=== PATIENT | female | born 1955 | race Caucasian/White ===

== ENCOUNTER → 2016-12-21 | Outpatient (REF) | payer OTHER ==
[~2016-12-21] MED LIST: /CELE20CA PO; FLEXERIL PO; HYDR25TA6 PO; KLOR10TA OR; LIDOCAINE HCL 2% TOP; LISI10TA4 PO; MECL25TA2 PO; PAXI10TA PO; PREV15CA PO; TOPI50TA PO; VALS40TA OR; boniva PO
== END ==
LOC: M SFHCPLAZ 15:37
DX: R35.0 Frequency of micturition (principal)

== ENCOUNTER → 2016-12-27 | Outpatient (CLI) | payer OTHER ==
--- NOTE | 2016-12-27 14:38 | REP ---
THYROID SONOGRAPHY: HISTORY: Thyroid nodule. Comparison study June 14, 2016. This was read as showing a solid-appearing nodule in the right lobe stable since 2005 and a new nodule in the left lobe measuring 0.8 cm. FINDINGS: Thyroid isthmus is 0.2 cm thick. Right lobe dimensions today are 5.3 x 1.7 x 1.4 cm. The left lobe measures 5.2 x 1.7 x 1.3 cm. There is a solid 0.9 x 0.7 x 0.6 cm nodule in the right mid thyroid gland unchanged. There is a complex nodule 0.9 x 0.7 x 0.5 cm in the left mid gland. This nodule is unchanged in size but has become more cystic. The calcification noted previously is no longer apparent. IMPRESSION: Stable size thyroid nodules bilaterally. The previously noted left-sided nodule has become more cystic in the interval since the most recent study of June 14, 2016. Signed by Heath Triana MD 12/27/2016 02:49 P
== END ==
LOC: M RAD 12:57
PROVIDERS: ATTEND Student in an Organized Health Care Education/Training Program
DX: E04.1 Nontoxic single thyroid nodule (principal)

== ENCOUNTER → 2017-02-08 | Outpatient (REF) | payer OTHER ==
[2017-02-11 00:06] LABS: Lyme Disease IgG/IgM Antibodie <0.91 ISR (0.00-0.90); Lyme Disease IgM Ab Quantitati <0.80 index (0.00-0.79); SJOGREN'S ANTI SS-A 3.6 AI (0.0-0.9); SJOGREN'S ANTI SS-B <0.2 AI (0.0-0.9)
== END ==
LOC: M LABNEURO 17:22
PROVIDERS: ATTEND Physician Assistant Medical
DX: M25.50 Pain in unspecified joint (principal)

== ENCOUNTER → 2017-02-28 | Outpatient (CLI) | payer OTHER ==
[~2017-02-28] MED LIST changes: +CALCTAB7 PO; +CRES40TA PO; +GABA-282 PO; +LIDO1OIN2 TOP; +LIDO1PAD TOP; +LOSA25TA8 PO; +MECL-86 PO; +MULT1TAB10 PO; +PREV30CA11 PO; +TOPA50TA7 PO; +TYLE650T35 PO; +VITA100037 PO
--- NOTE | 2017-02-28 14:47 | REPMRS ---
Patient History The patient states she had a clinical breast exam in Patient is postmenopausal and is nulliparous. Family history of colorectal cancer in mother. Digital Woman Screen Mammo: February 28, 2017 - Exam #: [id number] Bilateral CC and MLO view(s) were taken. Technologist: Yady Garcia, Technologist Prior study comparison: February 28, 2016, digital woman screen mammo performed at [facility]. February 25, 2015, digital bilateral screening mammo performed at [facility]. FINDINGS: The breast tissue is heterogeneously dense. This may lower the sensitivity of mammography. There has been no change in the appearance of the mammogram from the prior studies. There is a moderate amount of residual fibroglandular tissue which is fairly symmetric. There is no interval development of dominant mass, areas of architectural distortion, or clustered microcalcification typical of malignancy. ASSESSMENT: BI-RADS/ACR category 1 mammogram. Negative. Recommendation Routine screening mammogram in 1 year (for women over age 40). This mammogram was interpreted with the aid of an FDA-approved computer-aided dectection system. Electronically Signed By: Michael Morfin MD 02/28/17 2820
== END ==
LOC: M WHC 13:26
PROVIDERS: ATTEND Nurse Practitioner Family
DX: Z12.31 Encounter for screening mammogram for malignant neoplasm of breast (principal)

== ENCOUNTER → 2017-03-05 | Outpatient (CLI) | payer OTHER ==
[~2017-03-05] VITALS: Ht 157.5 cm; Wt 90.8 kg
[~2017-03-05] MED LIST changes: +LIDOCAINE 2% INJ 100 MG/5 ML SDV (FOR ANES.) As Ordered ONE; +NS 1,000 ML IV ONE; +PROPOFOL 500 MG/50 ML VIAL As Ordered ONE
--- NOTE | 2017-03-05 10:22 | ROOR ---
Patient Name: Grace Hernandez Procedure Date: 03/05/2017 10:08 AM Date of : 1955 Age: 62 Room: [facility] Gender: Female Note Status: Finalized Procedure: Upper GI endoscopy + Biopsies Indications: Heartburn Providers: Jame Moreno MD Referring MD: Sadi Champagne DO Requesting Provider: Medicines: Monitored Anesthesia Care Complications: No immediate complications. Procedure: Pre-Anesthesia Assessment: - The heart rate, respiratory rate, oxygen saturations, blood pressure, adequacy of pulmonary ventilation, and response to care were monitored throughout the procedure. The Endoscope was introduced through the mouth, and advanced to the second part of duodenum. The upper GI endoscopy was accomplished without difficulty. The patient tolerated the procedure well. Findings: The Z-line was irregular and was found 35 cm from the incisors. Multiple biopsies were obtained with cold forceps for evaluation to rule out Hernandez's Esophagus randomly at the gastroesophageal junction. A medium-sized hiatal hernia was present. No other significant abnormalities were identified in a careful examination of the stomach. The exam of the duodenum was otherwise normal. Impression: - Z-line irregular, 35 cm from the incisors. - Medium-sized hiatal hernia. - Multiple biopsies were obtained at the gastroesophageal junction. - The examination was otherwise normal. Recommendation: - Patient has a contact number available for emergencies. The signs and symptoms of potential delayed complications were discussed with the patient. Return to normal activities tomorrow. Written discharge instructions were provided to the patient. - High fiber diet. - Discharge patient to home. - Continue present medications. - Await pathology results. - Telephone GI clinic for pathology results in 1 week. - Check Portal Online for Path Results.([email or web address]) - Return to referring physician. - The findings and recommendations were discussed with the patient's family. Jame Moreno MD Jame Moreno MD 03/05/2017 10:22:26 AM This report has been signed electronically. Number of Addenda: 0 Note Initiated On: 03/05/2017 10:08 AM Estimated Blood Loss: Estimated blood loss: none.
--- NOTE | 2017-03-05 10:39 | ROOR ---
Patient Name: Grace Hernandez Procedure Date: 03/05/2017 10:09 AM Date of : 1955 Age: 62 Room: [facility] Gender: Female Note Status: Finalized Procedure: Colonoscopy to Cecum Indications: Colon cancer screening in patient at increased risk: Colorectal cancer in mother Providers: Jame Moreno MD Referring MD: Sadi Champagne DO Requesting Provider: Medicines: Monitored Anesthesia Care Complications: No immediate complications. Procedure: Pre-Anesthesia Assessment: - The heart rate, respiratory rate, oxygen saturations, blood pressure, adequacy of pulmonary ventilation, and response to care were monitored throughout the procedure. The Colonoscope was introduced through the anus and advanced to the cecum, identified by appendiceal orifice and ileocecal valve. The colonoscopy was performed without difficulty. The patient tolerated the procedure well. The quality of the bowel preparation was excellent. Findings: The perianal and digital rectal examinations were normal. Non-bleeding internal hemorrhoids were found during retroflexion. The hemorrhoids were small and Grade I (internal hemorrhoids that do not prolapse). A few diverticula were found in the recto-sigmoid colon, sigmoid colon and descending colon. The exam was otherwise without abnormality on direct and retroflexion views. Impression: - Non-bleeding internal hemorrhoids. - Diverticulosis in the recto-sigmoid colon, in the sigmoid colon and in the descending colon. - The examination was otherwise normal on direct and retroflexion views. - No specimens collected. - The exam was otherwise normal to the cecum. Recommendation: - Discharge patient to home. - High fiber diet. - Continue present medications. - Repeat colonoscopy in 5 years for screening purposes. - Return to referring physician. - The findings and recommendations were discussed with the patient's family. Jame Moreno MD Jame Moreno MD 03/05/2017 10:39:02 AM This report has been signed electronically. Number of Addenda: 0 Note Initiated On: 03/05/2017 10:09 AM Estimated Blood Loss: Estimated blood loss: none.
[2017-03-05 11:08] VITALS: BP 131/84
== END | disposition home or self-care (01) ==
LOC: M OPP 09:30
PROVIDERS: ATTEND Internal Medicine Gastroenterology
DX: Z12.11 Encounter for screening for malignant neoplasm of colon (principal); Z80.0 Family history of malignant neoplasm of digestive organs; K64.0 First degree hemorrhoids; K57.30 Diverticulosis of large intestine without perforation or abscess without bleeding; K21.9 Gastro-esophageal reflux disease without esophagitis; K22.8 Other specified diseases of esophagus; K29.50 Unspecified chronic gastritis without bleeding; K44.9 Diaphragmatic hernia without obstruction or gangrene; I10 Essential (primary) hypertension; E78.00 Pure hypercholesterolemia, unspecified; K58.9 Irritable bowel syndrome, unspecified; M19.90 Unspecified osteoarthritis, unspecified site; F41.9 Anxiety disorder, unspecified; F33.9 Major depressive disorder, recurrent, unspecified; Z86.69 Personal history of other diseases of the nervous system and sense organs; Z87.19 Personal history of other diseases of the digestive system; Z87.891 Personal history of nicotine dependence; Z79.899 Other long term (current) drug therapy
CPT/HCPCS: 43239; 88305; G0105

== ENCOUNTER → 2017-12-27 | Outpatient (REF) | payer OTHER | LOC: M LAB REF 12:30 | DX: R30.0 Dysuria (principal) | CPT/HCPCS: 87086 ==

== ENCOUNTER → 2018-01-01 | Outpatient (CLI) | payer OTHER | LOC: M LAB 11:58 | DX: E04.1 Nontoxic single thyroid nodule (principal) ==

== ENCOUNTER → 2018-01-02 | Outpatient (REF) | payer OTHER ==
[2018-01-02 15:24] LABS: CHLAMYDIA DNA AMPLIFICATION NEGATIVE (NEGATIVE); GC DNA AMPLIFICATION NEGATIVE (NEGATIVE)
== END ==
LOC: M SFHCWAGY 12:20
DX: Z11.3 Encounter for screening for infections with a predominantly sexual mode of transmission (principal); N89.8 Other specified noninflammatory disorders of vagina
CPT/HCPCS: 87591

== ENCOUNTER → 2018-01-08 | Outpatient (CLI) | payer OTHER | LOC: M WHC 10:18 | DX: R33.9 Retention of urine, unspecified (principal) | CPT/HCPCS: 76857 ==

== ENCOUNTER → 2018-03-27 | Outpatient (CLI) | payer OTHER | LOC: M WHC 15:00 | DX: Z12.31 Encounter for screening mammogram for malignant neoplasm of breast (principal); M85.851 Other specified disorders of bone density and structure, right thigh; M85.852 Other specified disorders of bone density and structure, left thigh; M85.88 Other specified disorders of bone density and structure, other site | CPT/HCPCS: 77067 ==

== ENCOUNTER → 2018-04-04 | Outpatient (REF) | payer OTHER ==
[2018-04-04 12:46] LABS: TOTAL 25(OH) VITAMIN D 51.3 NG/ML (30.0-100.0)
[2018-04-04 12:55] LABS: CALCIUM LEVEL 9.6 MG/DL (8.8-10.2)
== END ==
LOC: M SFHCWAGY 10:31
DX: M85.80 Other specified disorders of bone density and structure, unspecified site (principal)
CPT/HCPCS: 82310

== ENCOUNTER → 2018-04-17 | Outpatient (CLI) | payer OTHER ==
[2018-04-20 00:12] LABS: ANTI SCLERODERMA ANTIBODIES <0.2 AI (0.0-0.9)
[2018-04-20 00:12] LABS: ANTI CENTROMERE ANTIBODY 3.2 AI (0.0-0.9); HEPATITIS B CORE ANTIBODY IGG Positive (Negative)
== END ==
LOC: M LAB 15:07
DX: M35.01 Sjogren syndrome with keratoconjunctivitis (principal)
CPT/HCPCS: 86255

== ENCOUNTER → 2018-06-13 | Outpatient (CLI) | payer OTHER ==
[2018-06-13 12:52] LABS: ALBUMIN 3.6 GM/DL (3.2-5.2); ALBUMIN/GLOBULIN RATIO 0.95 (1.00-1.93); ALKALINE PHOSPHATASE 87 U/L (45-117); ALT/SGPT 32 U/L (12-78); ANION GAP 7 MEQ/L (8-16); AST/SGOT 18 U/L (7-37); BILIRUBIN,TOTAL 0.4 MG/DL (0.2-1.0); BLOOD UREA NITROGEN 18 MG/DL (7-18); CALCIUM LEVEL 8.7 MG/DL (8.8-10.2); CARBON DIOXIDE LEVEL 26 MEQ/L (21-32); CHLORIDE LEVEL 111 MEQ/L (98-107); CREATININE FOR GFR 0.93 MG/DL (0.55-1.30); GLOMERULAR FILTRATION RATE > 60.0 (>45); GLUCOSE, FASTING 63 MG/DL (70-100); POTASSIUM SERUM 3.9 MEQ/L (3.5-5.1); SODIUM LEVEL 144 MEQ/L (136-145); TOTAL PROTEIN 7.4 GM/DL (6.4-8.2)
[2018-06-14 10:18] LABS: HEPATITIS B CORE ANTIBODY IGM NEGATIVE (NEGATIVE)
[2018-06-16 00:06] LABS: HBV HBV DNA not detected IU/mL (.)
== END ==
LOC: M LAB 11:10
DX: M35.01 Sjogren syndrome with keratoconjunctivitis (principal)
CPT/HCPCS: 80053

== ENCOUNTER → 2018-09-13 | Outpatient (REF) | payer OTHER ==
[2018-09-13 18:05] LABS: HEMATOCRIT 47.3 % (36.0-47.0); HEMOGLOBIN 15.4 g/dl (12.0-15.5); MEAN CORPUSCULAR HEMOGLOBIN 29.5 pg (27.0-33.0); MEAN CORPUSCULAR HGB CONC 32.6 g/dl (32.0-36.5); MEAN CORPUSCULAR VOLUME 90.6 fl (80.0-96.0); PLATELET COUNT, AUTOMATED 194 10^3/uL (150-450); RED BLOOD COUNT 5.22 10^6/uL (4.00-5.40); RED CELL DISTRIBUTION WIDTH 13.1 % (11.5-14.5); WHITE BLOOD COUNT 7.1 10^3/uL (4.0-10.0)
[2018-09-13 18:14] LABS: HEMATOCRIT 47.3 % (36.0-47.0)
[2018-09-13 18:17] LABS: VITAMIN B12 LEVEL 591 PG/ML (247-911)
[2018-09-17 13:19] LABS: PRETREATED FOLATE FOR RBCFOL 12.3 NG/ML; RBC FOLATE 546 NG/ML (280-791)
== END ==
LOC: M SFHCPLAZ 14:55
DX: G62.9 Polyneuropathy, unspecified (principal)

== ENCOUNTER → 2019-01-21 | Outpatient (CLI) | payer OTHER ==
[~2019-01-21] MED LIST changes: -GABA-282 PO; +GABA-843 PO; -LIDOCAINE 2% INJ 100 MG/5 ML SDV (FOR ANES.) As Ordered ONE; +LOSA25TA14 PO; -LOSA25TA8 PO; -NS 1,000 ML IV ONE; +PREV1CAP PO; -PREV30CA11 PO; -PROPOFOL 500 MG/50 ML VIAL As Ordered ONE; -TOPA50TA7 PO; +TOPA50TA8 PO; -VITA100037 PO; +VITA100067 PO
--- NOTE | 2019-01-21 14:47 | REP ---
Clinical: Right knee pain. Technique: AP, lateral, bilateral oblique and sunrise views of the right knee. Findings: Generalized osteopenia is appreciated along with moderate tricompartmental osteoarthritic degenerative changes including subchondral sclerosis, joint space narrowing, and marginal osteophytosis. No acute fracture dislocation. Prepatellar soft tissue swelling suggested on lateral radiograph. No obvious effusion. No acute fracture. Impression: Osteopenia and moderate tricompartmental degenerative changes. Electronically Signed by Barrera Isaac MD 01/21/2019 02:38 P
--- NOTE | 2019-01-21 14:49 | REP ---
Clinical: Right knee pain. Technique: Single AP weightbearing view of the right and left knee. Findings: Subchondral sclerosis and minimal joint space narrowing appears symmetric and essentially unchanged when compared to the right knee series. Impression: Age-related osteopenia and moderate degenerative changes. Right knee medial joint space narrowing unchanged compared to nonweightbearing view. Electronically Signed by Barrera Isaac MD 01/21/2019 02:40 P
== END ==
LOC: M RAD 12:24
PROVIDERS: ATTEND Internal Medicine Rheumatology
DX: M25.861 Other specified joint disorders, right knee (principal); M25.862 Other specified joint disorders, left knee

== ENCOUNTER → 2019-04-03 | Outpatient (CLI) | payer OTHER ==
[~2019-04-03] MED LIST changes: -/CELE20CA PO; +CELE1CAP4 PO
--- NOTE | 2019-04-03 16:27 | REPMRS ---
Patient History The patient states she had a clinical breast exam in 03/2019. Patient is postmenopausal and is nulliparous. Family history of colorectal cancer in mother. No Hormone Replacement Therapy 3D TOMOSYNTHESIS WAS PERFORMED. Digital Woman Screen Mammo: April 03, 2019 - Exam #: [id number] Bilateral CC and MLO view(s) were taken. Technologist: Brandie Simmons, Technologist Prior study comparison: March 28, 2018, digital woman screen mammo performed at [facility]. February 28, 2017, digital woman screen mammo performed at [facility]. FINDINGS: The breast tissue is heterogeneously dense. This may lower the sensitivity of mammography. There has been no change in the appearance of the mammogram from the prior studies. There is a moderate amount of residual fibroglandular tissue which is fairly symmetric. There is no interval development of dominant mass, areas of architectural distortion, or clustered microcalcification typical of malignancy. Assessment: BI-RADS/ACR category 1 mammogram. Negative Mammogram. Recommendation Routine screening mammogram in 1 year (for women over age 40). This mammogram was interpreted with the aid of an FDA-approved computer-aided dectection system. Electronically Signed By: Michael Morfin MD 04/03/19 0124
== END ==
LOC: M WHC 14:37
PROVIDERS: ATTEND Nurse Practitioner Family
DX: Z12.31 Encounter for screening mammogram for malignant neoplasm of breast (principal)

== ENCOUNTER → 2019-07-11 | Outpatient (CLI) | payer OTHER ==
--- NOTE | 2019-07-11 16:46 | REP ---
THYROID ULTRASOUND Real-time sonographic evaluation of the thyroid performed and compared to prior study of 01/01/2018. Both lobes are slightly prominent in size and not significantly changed in size compared to the prior study. Right lobe measures 5.3 x 2.0 x 1.3 cm and left lobe 5.3 x 1.7 x 1.6 cm. There is a solid nodule in the mid right lobe which measures 1.1 x 0.6 x 0.8 cm. This is unchanged when compared to the prior study. There is an adjacent 3 mm cyst in the right lobe. In the left lobe there is a cyst with a mural nodule measuring 1.3 x 0.6 x 0.9 cm. Size has slightly increased, previously the maximum diameter is 1 cm. However, the internal solid component has decreased since the prior exam. There is an adjacent 2 mm cyst in the left lobe. IMPRESSION: No change in the size of both lobes of thyroid, both slightly enlarged. Solid appearing nodule right lobe is unchanged. Cystic nodule left lobe has slightly increased in size, but there is a subcentimeter mural nodule internally which has decreased in size compared to prior study. Electronically Signed by Michael Morfin MD 07/11/2019 04:45 P
== END ==
LOC: M RAD 15:06
PROVIDERS: ATTEND Physician Assistant Medical
DX: E04.1 Nontoxic single thyroid nodule (principal)

== ENCOUNTER → 2019-07-25 | Outpatient (REF) | payer OTHER ==
[2019-07-25 12:59] LABS: BASO # 0.1 10^3/uL (0.0-0.2); EOS # 0.3 10^3/uL (0.0-0.5); EOS % 5.1 % (0.0-3.0); HEMATOCRIT 46.5 % (36.0-47.0); HEMOGLOBIN 15.2 g/dl (12.0-15.5); LYMPH # 1.9 10^3/uL (1.5-5.0); LYMPH % 36.6 % (24.0-44.0); MEAN CORPUSCULAR HGB CONC 32.7 g/dl (32.0-36.5); MEAN CORPUSCULAR VOLUME 91.9 fl (80.0-96.0); MONO # 0.5 10^3/uL (0.0-0.8); MONO % 9.6 % (0.0-5.0); NEUTROPHILS # 2.4 10^3/uL (1.5-8.5); NEUTROPHILS % 47.5 % (36.0-66.0); PLATELET COUNT, AUTOMATED 183 10^3/uL (150-450); RED BLOOD COUNT 5.06 10^6/uL (4.00-5.40); WHITE BLOOD COUNT 5.1 10^3/uL (4.0-10.0)
[2019-07-25 14:33] LABS: ALBUMIN 3.8 GM/DL (3.2-5.2); ALT/SGPT 26 U/L (12-78); BILIRUBIN,TOTAL 0.3 MG/DL (0.2-1.0); BLOOD UREA NITROGEN 21 MG/DL (7-18); CALCIUM LEVEL 9.2 MG/DL (8.8-10.2); CARBON DIOXIDE LEVEL 24 MEQ/L (21-32); CHLORIDE LEVEL 111 MEQ/L (98-107); CHOLESTEROL LEVEL 129 MG/DL (<200); CHOLESTEROL RISK RATIO 1.897 (<5); CREATININE FOR GFR 0.92 MG/DL (0.55-1.30); FREE T4 1.08 NG/DL (0.76-1.46); GLOMERULAR FILTRATION RATE > 60.0 (>45); GLUCOSE, FASTING 92 MG/DL (70-100); HDL CHOLESTEROL 68 MG/DL (>40); LDL CHOLESTEROL 28 MG/DL (<100); NON-HDL-C 61 MG/DL; POTASSIUM SERUM 4.5 MEQ/L (3.5-5.1); SODIUM LEVEL 144 MEQ/L (136-145); TOTAL PROTEIN 7.4 GM/DL (6.4-8.2); TRIGLYCERIDES LEVEL 166 MG/DL (<150)
== END ==
LOC: M SFHCADAM 08:40
PROVIDERS: ATTEND Physician Assistant Medical
DX: Z13.1 Encounter for screening for diabetes mellitus (principal); K21.9 Gastro-esophageal reflux disease without esophagitis; E55.9 Vitamin D deficiency, unspecified; E66.01 Morbid (severe) obesity due to excess calories; Z13.220 Encounter for screening for lipoid disorders

== ENCOUNTER → 2019-08-07 | Outpatient (REF) | payer OTHER ==
[2019-08-07 15:31] LABS: BLOOD UREA NITROGEN 23 MG/DL (7-18); C REACTIVE PROTEIN QUANTITATIV < 0.30 MG/DL (0.00-0.30); CREATININE FOR GFR 0.97 MG/DL (0.55-1.30); GLOMERULAR FILTRATION RATE > 60.0 (>45)
== END ==
LOC: M LABDRAW1 13:36
PROVIDERS: ATTEND Physician Assistant
DX: M47.817 Spondylosis without myelopathy or radiculopathy, lumbosacral region (principal)

== ENCOUNTER → 2020-04-05 | Outpatient (CLI) | payer BC, MEDICARE, OTHER ==
--- NOTE | 2020-04-05 16:36 | REPMRS ---
Patient History The patient states she had a clinical breast exam in March 2020. Family history of colorectal cancer in mother. No Hormone Replacement Therapy 3D TOMOSYNTHESIS WAS PERFORMED. The Barron Atkins lifetime risk for breast cancer is 9.0%. VOLNIKOLAIA MARCI B. Digital Woman Screen Mammo: April 05, 2020 - Exam #: [id number] Bilateral CC and MLO view(s) were taken. Technologist: Jess Cole, Technologist Prior study comparison: April 03, 2019, bilateral digital woman screen mammo performed at [facility]. March 28, 2018, digital woman screen mammo performed at [facility]. FINDINGS: The breast tissue is heterogeneously dense. This may lower the sensitivity of mammography. There has been no change in the appearance of the mammogram from the prior studies. There is a moderate amount of residual fibroglandular tissue which is fairly symmetric. There is no interval development of dominant mass, areas of architectural distortion, or clustered microcalcification typical of malignancy. Assessment: BI-RADS/ACR category 1 mammogram. Negative Mammogram. Recommendation Routine screening mammogram in 1 year (for women over age 40). This mammogram was interpreted with the aid of an FDA-approved computer-aided dectection system. Electronically Signed By: Michael Morfin MD 04/05/20 3821
--- NOTE | 2020-04-14 15:54 | DEXA ---
AP SPINE L1 - L4 1.183 -0.1 1.5 LT FEMUR TOTAL 0.817 -1.5 -0.3 LT NECK 0.759 -2.0 -0.5 RT FEMUR TOTAL 0.779 -2.0 -0.9 RT NECK 0.791 -1.8 -0.3 TOTAL BODY TOTAL OTHER COMMENTS: Normal bone densitometry of the spine. There is low bone density of the hips. Decreased density of the spine does represent a significant change. The decreased density of the left hip does not represent significant change. The decreased density of the right hip does not represent a significant change. The density of the spine has increased 9.7% since the initial exam on 10/01/2007. The decreased 5.8% since the most recent exam on 03/27/2018. The density of the left hip has decreased 1.3% since the initial exam on 10/01/2007. The density of the left hip has decreased 1.3% since the most recent exam on 03/27/2018. The density of the right hip has decreased 5.8% since the initial exam on 10/01/2007. The density of the right hip has decreased 0.8% since the most recent exam on 03/27/2018. FOLLOW-UP: Recommendation for the next bone density exam: 2 years. JOSEY
== END ==
LOC: M WHC 13:46
PROVIDERS: ATTEND Nurse Practitioner Family
DX: Z12.31 Encounter for screening mammogram for malignant neoplasm of breast (principal); Z95.9 Presence of cardiac and vascular implant and graft, unspecified; Z80.0 Family history of malignant neoplasm of digestive organs; M85.851 Other specified disorders of bone density and structure, right thigh; M85.852 Other specified disorders of bone density and structure, left thigh

== ENCOUNTER → 2020-10-15 | Outpatient (REF) | payer MEDICARE, OTHER ==
[~2020-10-15] MED LIST changes: +ACET650T61 PO; +CALC-211 PO; -CALCTAB7 PO; -TYLE650T35 PO
[2020-10-15 13:19] LABS: HEMOGLOBIN 15.4 g/dl (12.0-15.5); MEAN CORPUSCULAR HEMOGLOBIN 28.6 pg (27.0-33.0); MEAN CORPUSCULAR HGB CONC 31.4 g/dl (32.0-36.5); MEAN CORPUSCULAR VOLUME 91.1 fl (80.0-96.0); PLATELET COUNT, AUTOMATED 199 10^3/uL (150-450); RED BLOOD COUNT 5.38 10^6/uL (4.00-5.40); WHITE BLOOD COUNT 5.8 10^3/uL (4.0-10.0)
[2020-10-15 13:58] LABS: ALBUMIN 3.9 GM/DL (3.2-5.2); BILIRUBIN,TOTAL 0.4 MG/DL (0.2-1.0); CALCIUM LEVEL 9.5 MG/DL (8.8-10.2); CHOLESTEROL RISK RATIO 2.13 (<5); CREATININE FOR GFR 1.02 MG/DL (0.55-1.30); GLOMERULAR FILTRATION RATE 57.9 (>45); POTASSIUM SERUM 4.3 MEQ/L (3.5-5.1); THYROID STIMULATING HORMONE 1.94 uIU/ML (0.358-3.740); TOTAL 25(OH) VITAMIN D 46.3 NG/ML (30.0-100.0); TOTAL PROTEIN 7.9 GM/DL (6.4-8.2)
== END ==
LOC: M SFHCADAM 09:54
PROVIDERS: ATTEND Physician Assistant Medical
DX: K21.9 Gastro-esophageal reflux disease without esophagitis (principal); E66.01 Morbid (severe) obesity due to excess calories; F17.210 Nicotine dependence, cigarettes, uncomplicated; G89.4 Chronic pain syndrome; E07.9 Disorder of thyroid, unspecified

== ENCOUNTER → 2021-04-06 | Outpatient (CLI) | payer MEDICARE, OTHER ==
[~2021-04-06] MED LIST changes: +GABA-282 PO; -GABA-843 PO
--- NOTE | 2021-04-06 14:53 | REPMRS ---
Patient History The patient states she had a clinical breast exam in 03/2021. Family history of colorectal cancer in mother. No Hormone Replacement Therapy Tomosynthesis is performed. Volpara breast density is b. Tyrer-zi lifetime risk of breast cancer 8.5%. Patient states no breast complaints today. Patient has signed MRS History Sheet. Digital Woman Screen Mammo: April 06, 2021 - Exam #: [id number] Bilateral CC and MLO view(s) were taken. Technologist: Brandie Simmons, Technologist Prior study comparison: April 05, 2020, bilateral digital woman screen mammo performed at [facility]. April 03, 2019, bilateral digital woman screen mammo performed at [facility]. FINDINGS: There are scattered fibroglandular densities. There has been no change in the appearance of the mammogram from the prior studies. There is a mild amount of residual fibroglandular tissue which is fairly symmetric. There is no interval development of dominant mass, architectural distortion, or clustered microcalcification suggestive of malignancy. Assessment: BI-RADS/ACR category 1 mammogram. Negative Mammogram. Recommendation Routine screening mammogram in 1 year (for women over age 40). This mammogram was interpreted with the aid of an FDA-approved computer-aided dectection system. Electronically Signed By: Michael Morfin MD 04/06/21 [id number]
== END ==
LOC: M WHC 13:38
PROVIDERS: ATTEND Nurse Practitioner Women's Health
DX: Z12.31 Encounter for screening mammogram for malignant neoplasm of breast (principal)

== ENCOUNTER → 2022-04-11 | Outpatient (CLI) | payer MEDICARE, OTHER ==
[~2022-04-11] MED LIST changes: +LOSA25TA13 PO; -LOSA25TA14 PO
== END ==
LOC: M WHC 14:33
PROVIDERS: ATTEND Physician Assistant Medical
DX: Z12.31 Encounter for screening mammogram for malignant neoplasm of breast (principal); M85.851 Other specified disorders of bone density and structure, right thigh; M85.852 Other specified disorders of bone density and structure, left thigh

== ENCOUNTER → 2023-01-17 | Outpatient (CLI) | payer MEDICARE, OTHER | LOC: M PLAIMG 13:52 → M PLALAB 13:52 | PROVIDERS: ATTEND Psychiatry & Neurology Neurology | DX: M25.571 Pain in right ankle and joints of right foot (principal); M85.80 Other specified disorders of bone density and structure, unspecified site ==

== ENCOUNTER → 2023-06-25 | Outpatient (CLI) | payer MEDICARE, OTHER | LOC: M RAD 12:40 | PROVIDERS: ATTEND Physician Assistant Medical | DX: F17.210 Nicotine dependence, cigarettes, uncomplicated (principal) ==

== ENCOUNTER → 2023-10-25 | Outpatient (REF) | payer MEDICARE, OTHER ==
[2023-10-25 14:09] LABS: ALBUMIN 3.9 G/DL (3.2-5.2); ALKALINE PHOSPHATASE 108 U/L (46-116); ALT/SGPT 12 U/L (7.0-40); AST/SGOT 10 U/L (<34); BILIRUBIN,TOTAL 0.5 MG/DL (0.3-1.2); BLOOD UREA NITROGEN 20 MG/DL (9-23); CALCIUM LEVEL 9.3 MG/DL (8.3-10.6); CARBON DIOXIDE LEVEL 27 MMOL/L (20-31); CHLORIDE LEVEL 109 MMOL/L (98-107); CREATININE FOR GFR 0.79 MG/DL (0.55-1.30); GLOMERULAR FILTRATION RATE > 60.0 (>45); GLUCOSE, FASTING 93 MG/DL (74-106); POTASSIUM SERUM 4.6 MMOL/L (3.5-5.1); SODIUM LEVEL 144 MMOL/L (136-145); TOTAL PROTEIN 7.2 G/DL (5.7-8.2)
[2023-10-25 14:14] LABS: TOTAL 25(OH) VITAMIN D 53.1 NG/ML (20.0-100.0)
[2023-10-25 14:16] LABS: VITAMIN B12 LEVEL 424 PG/ML (211-911)
[2023-10-25 14:17] LABS: BASO # 0.1 10^3/uL (0.0-0.2); EOS # 0.2 10^3/uL (0.0-0.5); EOS % 4.6 % (0.0-3.0); HEMOGLOBIN 14.6 g/dl (12.0-15.5); LYMPH # 1.5 10^3/uL (1.5-5.0); LYMPH % 29.3 % (24.0-44.0); MEAN CORPUSCULAR HEMOGLOBIN 29.7 pg (27.0-33.0); MEAN CORPUSCULAR HGB CONC 31.7 g/dl (32.0-36.5); MEAN CORPUSCULAR VOLUME 93.5 fl (80.0-96.0); MONO # 0.4 10^3/uL (0.0-0.8); MONO % 7.9 % (2.0-8.0); NEUTROPHILS # 2.8 10^3/uL (1.5-8.5); NEUTROPHILS % 57.2 % (36.0-66.0); PLATELET COUNT, AUTOMATED 196 10^3/uL (150-450); RED BLOOD COUNT 4.92 10^6/uL (4.00-5.40)
[2023-11-06 12:08] LABS: VITAMIN E(GAMMA TOCOPHEROL) 1.5 mg/L (0.5-4.9)
== END ==
LOC: M LABDRWAD 12:34
PROVIDERS: ATTEND Psychiatry & Neurology Neurology
DX: R51.9 Headache, unspecified (principal); R42 Dizziness and giddiness; M81.0 Age-related osteoporosis without current pathological fracture; E56.9 Vitamin deficiency, unspecified

== ENCOUNTER → 2023-11-20 | Outpatient (REF) | payer MEDICARE, OTHER, BC | LOC: M LAB REF 14:39 | PROVIDERS: ATTEND Student in an Organized Health Care Education/Training Program | DX: R51.9 Headache, unspecified (principal); R42 Dizziness and giddiness; E53.8 Deficiency of other specified B group vitamins ==

== ENCOUNTER → 2023-12-13 | Outpatient (CLI) | payer MEDICARE, OTHER ==
[~2023-12-13] MED LIST changes: +ALEN70TA87 PO; +DULO60CA35 PO; +ISOVUE-300 61% 100ML VIAL As Ordered ONE; +LIDOCAINE 1% MDV 20ML VIAL As Ordered ONE; +TRIAMCINOLONE ACETONIDE SUSP 40MG/ML 1ML VIAL As Ordered ONE; +vitafusion PO
== END ==
LOC: M RAD 10:24
PROVIDERS: ATTEND Physician Assistant
DX: M16.12 Unilateral primary osteoarthritis, left hip (principal)
CPT/HCPCS: 20610; 77002; J3301; Q9967

== ENCOUNTER 2023-12-24 09:47 | Day surgery (SDC) | payer MEDICARE, OTHER ==
[~2023-12-24] VITALS: Ht 154.9 cm; Wt 82.2 kg
[~2023-12-24 09:47] MED LIST changes: -ISOVUE-300 61% 100ML VIAL As Ordered ONE; -LIDOCAINE 1% MDV 20ML VIAL As Ordered ONE; -TRIAMCINOLONE ACETONIDE SUSP 40MG/ML 1ML VIAL As Ordered ONE
[2023-12-24] MEDS ORDERED: fentaNYL 100 MCG/2 ML INJECTION As Ordered ONE (09:58)
[2023-12-24] MEDS ORDERED: propofoL 500 MG/50 ML VIAL As Ordered ONE (09:59)
[2023-12-24] MEDS ORDERED: LIDOCAINE 2% 100MG/5ML SDV (FOR ANES.) As Ordered ONE (10:06)
[2023-12-24] MEDS: NS 1,000 ML IV ONE (10:12)
[2023-12-24 11:01] VITALS: TEMP 96.6
[2023-12-24 11:19] VITALS: BP 147/75; O2SAT 98
== END 2023-12-24 11:40 | disposition home or self-care (01) ==
LOC: M OPP 09:47
PROVIDERS: ATTEND Internal Medicine Gastroenterology
DX: K64.0 First degree hemorrhoids (principal); K44.9 Diaphragmatic hernia without obstruction or gangrene; Z80.0 Family history of malignant neoplasm of digestive organs; R12 Heartburn; Z87.891 Personal history of nicotine dependence; Z79.02 Long term (current) use of antithrombotics/antiplatelets; Z79.891 Long term (current) use of opiate analgesic; Z79.899 Other long term (current) drug therapy
CPT/HCPCS: 43239; 88305; G0105; J3010

== ENCOUNTER → 2024-03-14 | Outpatient (CLI) | payer MEDICARE, OTHER | LOC: M PLAIMG 11:09 | PROVIDERS: ATTEND Physician Assistant | DX: M47.896 Other spondylosis, lumbar region (principal) ==

== ENCOUNTER → 2024-04-14 | Outpatient (CLI) | payer MEDICARE, OTHER | LOC: M WHC 12:33 | PROVIDERS: ATTEND Physician Assistant Medical | DX: Z12.31 Encounter for screening mammogram for malignant neoplasm of breast (principal); M85.851 Other specified disorders of bone density and structure, right thigh; M85.852 Other specified disorders of bone density and structure, left thigh ==

== ENCOUNTER → 2024-04-22 | Outpatient (REF) | payer MEDICARE, OTHER ==
[2024-04-22 12:21] LABS: PLATELET COUNT, AUTOMATED 191 10^3/uL (150-450)
[2024-04-22 12:33] LABS: INR 1.06; PARTIAL THROMBOPLASTIN TIME 31.1 SECONDS (24.8-34.2); PROTHROMBIN TIME 13.4 SECONDS (12.5-14.5)
[2024-04-22 12:47] LABS: COLLAGEN EPINEPHRINE 80 SECONDS (74-162)
== END ==
LOC: M LABDRWAD 12:15
PROVIDERS: ATTEND Physician Assistant
DX: Z01.818 Encounter for other preprocedural examination (principal)

== ENCOUNTER → 2024-05-28 | Outpatient (REF) | payer MEDICARE, OTHER ==
[2024-05-28 18:30] LABS: URIC ACID 3.9 MG/DL (3.1-7.8)
[2024-05-28 18:32] LABS: C REACTIVE PROTEIN QUANTITATIV < 0.40 MG/DL (<1.0)
[2024-05-28 18:33] LABS: RHEUMATOID FACTOR QUANT 5.2 IU/ML (<14)
[2024-05-30 09:39] LABS: DRVV SCREEN 35.1 SECONDS
[2024-05-30 09:41] LABS: PTT LUPUS TYPE ANTICOAG SCREEN 0.91 (0-1.20)
[2024-05-30 14:42] LABS: ANA PATTERN Cytoplasmic (NEGATIVE); ANA PATTERN 2 Nuclear, Homogeneous; ANA SCREEN, IFA POSITIVE (NEGATIVE); ANA TITER 1:40 titer (<1:40); ANA TITER 2 1:40 titer (NEGATIVE)
== END ==
LOC: M SFHCADAM 12:00
PROVIDERS: ATTEND Physician Assistant Medical
DX: M25.50 Pain in unspecified joint (principal)

== ENCOUNTER → 2024-08-06 | Outpatient (CLI) | payer MEDICARE, OTHER ==
[~2024-08-06] MED LIST changes: +GABA-1172 PO; -GABA-282 PO
== END ==
LOC: M RAD 13:41
PROVIDERS: ATTEND Physician Assistant Medical
DX: Z87.891 Personal history of nicotine dependence (principal)

== ENCOUNTER 2024-09-15 10:47 | Day surgery (SDC) | payer MEDICARE, OTHER ==
[~2024-09-15] VITALS: Ht 154.9 cm; Wt 83.5 kg
[~2024-09-15 10:47] MED LIST changes: +ALEN35TA56 PO; +DULO1CAP6 PO; +LANS30CA93 PO; +LR 1,000 ML IV SCH; +ROSU40TA81 PO; +TIZA10TA PO; +TOPI-21 PO
[2024-09-15] MEDS: TETRACAINE 0.5% OPHTH SOLN 4ML OS SCH (12:15)
[2024-09-15] MEDS: ATROPINE SULFATE 1% OPHTH SOLN 2ML BTL OS SCH (12:15)
[2024-09-15] MEDS: FLURBIPROFEN 0.03% OPHTH SOLN 2.5 ML OS SCH (12:15)
[2024-09-15] MEDS: PHENYLEPHRINE 2.5% OPHTH SOL 2ML OS SCH (12:15)
[2024-09-15] MEDS: CEFUROXIME 1MG/0.1ML INTRACAMERAL INJ As Ordered ONE (13:01)
[2024-09-15] MEDS: LIDOCAINE 1% SDV 5ML VIAL As Ordered ONE (13:01)
[2024-09-15] MEDS ORDERED: fentaNYL 100 MCG/2 ML INJECTION As Ordered ONE (13:15)
[2024-09-15] MEDS ORDERED: MIDAZOLAM INJ 2MG/2ML VIAL As Ordered ONE (13:15)
[2024-09-15 13:19] VITALS: BP 149/85; TEMP 97.2; O2SAT 95
== END 2024-09-15 13:35 | disposition home or self-care (01) ==
LOC: M SDC 10:47
PROVIDERS: ATTEND Ophthalmology
DX: H25.12 Age-related nuclear cataract, left eye (principal); Z79.899 Other long term (current) drug therapy; Z87.891 Personal history of nicotine dependence
CPT/HCPCS: 66984; J0697; J2250; J3010; V2632

== ENCOUNTER 2024-09-22 08:25 | Day surgery (SDC) | payer MEDICARE, OTHER ==
[~2024-09-22] VITALS: Ht 152.4 cm; Wt 83.1 kg
[~2024-09-22 08:25] MED LIST changes: +MIDAZOLAM INJ 2MG/2ML VIAL As Ordered ONE; +fentaNYL 100 MCG/2 ML INJECTION As Ordered ONE
[2024-09-22] MEDS: CYCLOPENTOLATE 1% OPHTH SOLN 2ML BTL OD SCH (09:20)
[2024-09-22] MEDS: FLURBIPROFEN 0.03% OPHTH SOLN 2.5 ML OD SCH (09:21)
[2024-09-22] MEDS: TETRACAINE 0.5% OPHTH SOLN 4ML OD SCH (09:21)
[2024-09-22] MEDS: PHENYLEPHRINE 2.5% OPHTH SOL 2ML OD SCH (09:21)
[2024-09-22] MEDS: LIDOCAINE 1% SDV 5ML VIAL As Ordered ONE (10:36)
[2024-09-22] MEDS: CEFUROXIME 1MG/0.1ML INTRACAMERAL INJ As Ordered ONE (10:36)
[2024-09-22 10:50] VITALS: BP 151/77; TEMP 96.9; O2SAT 97
== END 2024-09-22 11:06 | disposition home or self-care (01) ==
LOC: M SDC 08:25
PROVIDERS: ATTEND Ophthalmology
DX: H25.11 Age-related nuclear cataract, right eye (principal); E03.9 Hypothyroidism, unspecified; E78.00 Pure hypercholesterolemia, unspecified; K58.9 Irritable bowel syndrome, unspecified; Z87.19 Personal history of other diseases of the digestive system; K21.9 Gastro-esophageal reflux disease without esophagitis; Z79.899 Other long term (current) drug therapy; Z90.710 Acquired absence of both cervix and uterus
CPT/HCPCS: 66984; J0697; J2250; J3010; V2632

== ENCOUNTER → 2024-11-20 | Outpatient (REF) | payer MEDICARE, OTHER ==
[~2024-11-20] MED LIST changes: -LR 1,000 ML IV SCH; -MIDAZOLAM INJ 2MG/2ML VIAL As Ordered ONE; -fentaNYL 100 MCG/2 ML INJECTION As Ordered ONE
[2024-11-20 14:19] LABS: BASO # 0.1 10^3/uL (0.0-0.2); BASO % 1.2 % (0.0-1.0); EOS # 0.2 10^3/uL (0.0-0.5); EOS % 3.1 % (0.0-3.0); HEMATOCRIT 48.8 % (36.0-47.0); HEMOGLOBIN 15.3 g/dl (12.0-15.5); LYMPH # 1.6 10^3/uL (1.5-5.0); LYMPH % 28.2 % (24.0-44.0); MEAN CORPUSCULAR HEMOGLOBIN 29.7 pg (27.0-33.0); MEAN CORPUSCULAR HGB CONC 31.4 g/dl (32.0-36.5); MEAN CORPUSCULAR VOLUME 94.8 fl (80.0-96.0); MONO # 0.5 10^3/uL (0.0-0.8); MONO % 8.3 % (2.0-8.0); NEUTROPHILS # 3.4 10^3/uL (1.5-8.5); PLATELET COUNT, AUTOMATED 224 10^3/uL (150-450); RED BLOOD COUNT 5.15 10^6/uL (4.00-5.40); WHITE BLOOD COUNT 5.8 10^3/uL (4.0-10.0)
[2024-11-20 14:22] LABS: ALBUMIN 3.7 G/DL (3.2-5.2); ALKALINE PHOSPHATASE 89 U/L (35-104); ALT/SGPT 20 U/L (7.0-40); AST/SGOT 15 U/L (<34); BILIRUBIN,TOTAL 0.5 MG/DL (0.3-1.2); BLOOD UREA NITROGEN 22 MG/DL (9-23); CALCIUM LEVEL 9.3 MG/DL (8.3-10.6); CARBON DIOXIDE LEVEL 28 MMOL/L (20-31); CHLORIDE LEVEL 115 MMOL/L (98-107); CHOLESTEROL LEVEL 148 MG/DL (<200); CHOLESTEROL RISK RATIO 2.06 (<5); CREATININE FOR GFR 0.84 MG/DL (0.55-1.30); GLOMERULAR FILTRATION RATE > 60.0 (>45); GLUCOSE, FASTING 90 MG/DL (74-106); HDL CHOLESTEROL 71.5 MG/DL (>40); LDL CHOLESTEROL 52.7 MG/DL (<100); NON-HDL-C 76.5 MG/DL; POTASSIUM SERUM 4.2 MMOL/L (3.5-5.1); SODIUM LEVEL 146 MMOL/L (136-145); TOTAL PROTEIN 7.2 G/DL (5.7-8.2); TRIGLYCERIDES LEVEL 119 MG/DL (<150)
[2024-11-20 14:24] LABS: THYROID STIMULATING HORMONE 2.379 uIU/ML (0.55-4.78)
[2024-11-20 14:25] LABS: TOTAL 25(OH) VITAMIN D 49.3 NG/ML (20.0-100.0)
[2024-11-20 17:00] LABS: HEMOGLOBIN A1c 5.2 % (4.0-6.0)
== END ==
LOC: M SFHCADAM 09:07
PROVIDERS: ATTEND Physician Assistant Medical
DX: K21.9 Gastro-esophageal reflux disease without esophagitis (principal); E66.01 Morbid (severe) obesity due to excess calories; E78.5 Hyperlipidemia, unspecified; E55.9 Vitamin D deficiency, unspecified; Z79.899 Other long term (current) drug therapy

== ENCOUNTER → 2025-02-20 | Outpatient (REF) | payer MEDICARE, OTHER | LOC: M SFHCDERM 13:12 | PROVIDERS: ATTEND Physician Assistant | DX: D48.9 Neoplasm of uncertain behavior, unspecified (principal); D17.30 Benign lipomatous neoplasm of skin and subcutaneous tissue of unspecified sites ==

== ENCOUNTER → 2025-09-08 | Outpatient (CLI) | payer MEDICARE, OTHER | LOC: M RAD 15:07 | PROVIDERS: ATTEND Physician Assistant Medical | DX: Z87.891 Personal history of nicotine dependence (principal) ==